=== PATIENT | male | born 2000 | race Two or more races ===

== ENCOUNTER 2023-03-09 19:22 | Emergency (ER) | payer MEDICAID ==
[~2023-03-09] VITALS: Ht 172.7 cm; Wt 74.0 kg
[2023-03-09] MEDS ORDERED: LIDOCAINE 1% HCL (LOCAL ANESTH.) INJ 20ML MDV ID ONE (20:00)
[2023-03-09 20:05] VITALS: BP 137/83; PULSE 68; RESP 20; TEMP 99.3; O2SAT 99
[2023-03-09] MEDS ORDERED: TETANUS-DIPTH-ACEL PERTUSSIS 0.5ML SYR Tdap IM ONE (20:15)
[2023-03-09] MEDS ORDERED: IBUP-1454 PO (20:19)
[2023-03-09] MEDS ORDERED: CEPH250C PO (20:19)
[2023-03-09] MEDS ORDERED: ACET500T58 PO (20:19)
== END 2023-03-09 20:30 | disposition home or self-care (01) ==
LOC: ER 19:22
DX: S61.011A Laceration without foreign body of right thumb without damage to nail, initial encounter (principal); W26.0XXA Contact with knife, initial encounter; Y93.G1 Activity, food preparation and clean up; Y92.098 Other place in other non-institutional residence as the place of occurrence of the external cause; Y99.8 Other external cause status
CPT/HCPCS: 12001; 90471; 90715; 99283; J2001